=== PATIENT | female | born 1980 | race Caucasian/White ===

== ENCOUNTER 2021-06-07 11:26 | Emergency (ER) | payer OTHER ==
[2021-06-07] MEDS ORDERED: Dexamethasone 10 MG/ML VIAL ONE (12:13)
== END 2021-06-07 12:22 | disposition home or self-care (01) ==
LOC: CSHERS 11:26
DX: R22.0 Localized swelling, mass and lump, head (principal); D89.89 Other specified disorders involving the immune mechanism, not elsewhere classified; F17.210 Nicotine dependence, cigarettes, uncomplicated; Z79.899 Other long term (current) drug therapy
CPT/HCPCS: 96372; 99283; J1100

== ENCOUNTER 2023-02-19 23:55 | Emergency (ER) | payer OTHER | END 2023-02-20 00:40 | disposition home or self-care (01) | LOC: CSHERS 23:55 | DX: H44.002 Unspecified purulent endophthalmitis, left eye (principal) | CPT/HCPCS: 99281 ==